=== PATIENT | male | born 1950 | race Caucasian/White ===

== ENCOUNTER 2020-12-29 08:24 | Emergency (ER) | payer OTHER ==
[~2020-12-29] VITALS: Ht 167.6 cm; Wt 79.4 kg
[2020-12-29 08:30] VITALS: BP 173/67
--- NOTE | 2020-12-29 08:30 | NUR ---
Patient ambulated to bed 7.
--- NOTE | 2020-12-29 08:39 | NUR ---
70/M presents to ED with right arm laceration. 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 Laceration noted to right arm, slight bleeding noted, patient denies taking anything for pain or cleaning the site, states "I just wrapped my arm and came here." Patient is alert and oriented x4, answering questions appropriately, denies head injury, denies LOC. Patient able to move right arm, pulses equal bilaterally, cap refill less than 2 seconds.
--- NOTE | 2020-12-29 08:43 | NUR ---
irrigated pt right arm with ns and betadine 300ml without any issues
[2020-12-29] MEDS ORDERED: LIDOCAINE MPF 1% 10 MG/ML VIAL INJ ONE ×2 (09:00→09:10)
--- NOTE | 2020-12-29 09:25 | NUR ---
Dr. Adams bedside for laceration repair
--- NOTE | 2020-12-29 10:09 | NUR ---
applied dressing to right arm without any issues
[2020-12-29] MEDS ORDERED: MORPHINE SULFATE 4 MG/ML SYR IVP ONE (10:45)
[2020-12-29] MEDS ORDERED: HYDROcodone/APAP 5/325 MG 1 TAB TAB PO ONE (10:45)
[2020-12-29] MEDS ORDERED: diphenhydrAMINE 50 MG/ML VIAL IVP ONE (10:45)
[2020-12-29] MEDS ORDERED: ONDANSETRON 4 MG ODT PO ONE (10:45)
[2020-12-29] MEDS ORDERED: ONDANSETRON 4 MG/2 ML VIAL IVP ONE (10:45)
[2020-12-29] MEDS ORDERED: ACET-8386 PO (10:52)
[2020-12-29] MEDS ORDERED: CEPH-588 PO (10:54)
[2020-12-29 11:05] VITALS: BP 180/81
--- NOTE | 2020-12-29 11:05 | NUR ---
Patient discharged with v/s stable. Written and verbal after care instructions given and explained. Patient alert, oriented and verbalized understanding of instructions. Ambulatory with steady gait. All questions addressed prior to discharge. ID band removed. Patient advised to follow up with PMD. Rx of Keflex and Vancourt given. Patient educated on indication of medication including possible reaction and side effects. Opportunity to ask questions provided and answered.
== END 2020-12-29 11:05 | disposition home or self-care (01) ==
LOC: MED 08:24
DX: S51.811A Laceration without foreign body of right forearm, initial encounter (principal); Z79.899 Other long term (current) drug therapy; W11.XXXA Fall on and from ladder, initial encounter; Y93.39 Activity, other involving climbing, rappelling and jumping off; Y92.89 Other specified places as the place of occurrence of the external cause; Y99.8 Other external cause status
CPT/HCPCS: 12002; 73090; 99283; J2001; Q0162

== ENCOUNTER 2021-01-07 15:27 | Emergency (ER) | payer OTHER ==
[~2021-01-07] VITALS: Ht 167.6 cm; Wt 80.3 kg
[~2021-01-07 15:27] MED LIST: ACET-8386 PO; CEPH-588 PO
[2021-01-07 15:45] VITALS: BP 141/61
[2021-01-07] MEDS ORDERED: BACITRACIN OINT 500 UNITS/GM PKT TP ONE ×2 (16:24→16:30)
[2021-01-07 16:34] VITALS: BP 141/61
== END 2021-01-07 16:35 | disposition home or self-care (01) ==
LOC: MED 15:27
DX: S51.811D Laceration without foreign body of right forearm, subsequent encounter (principal); Z79.899 Other long term (current) drug therapy; X58.XXXD Exposure to other specified factors, subsequent encounter
CPT/HCPCS: 99282